=== PATIENT | female | born 2000 | race Caucasian/White ===

== ENCOUNTER 2021-09-22 08:43 | Outpatient (RCR) | payer MEDICAID, SELFPAY ==
--- NOTE | 2021-09-22 10:07 | HP.PTEVAL_ITS ---
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 Date of Evaluation: 09/22/21 Physical Therapist: Jill Quick DPT - Visit Plan Frequency: 1x/Week Plan: Wheelchair evaluation - Subjective She has been in a wheelchair her whole she got her first one when she was 4-5 years old and its time for a new one. Lives with her family- she is fully i ndependent in her home in her chair. When she transfers independently from different surfaces. Does not work- does not drive. She is mostly at her home at this point due to the weather, but when its nice outside she can get outside. She is in her chair most of the day. She has sensation throughout both of her lower extremities- she has really bad circulation in her legs. She has not had pressure sores and can do her own weight shifts. She does not wear AFO's and shoes. She is not walking at all at this time. The most her feet touch the ground is to transfer. Goals: to get a new chair. She does sports- sled hockey and track with [employer]. - Objective Posture: FH, RS- can correct with verbal cues but does not maintain. Gait: patient does not ambulate. Transfers: stand/pivot with full use of UE for pulling to plinth. Palpation: not tender to touch. ROM: PROM: Ankle: DF: 10 degrees, PF: 20 degrees, Knee: Left: 0-120 degrees with patella subluxation, Right: 0-100 degrees. Hip: flexion: 90 degrees, Abd: 40 degrees- all motions have tight end feels due to increased tone. Strength: Core: fair plus, Hip: trace in hip flexion and abduction, Knee and Ankle: unable to perform without max A from PT. Flex: Hamsting: severe, Gastroc: severe, Soleus: severe, Quad: severe - Rehabilitation Potential Physical Therapy Diagnosis: Patient present with hypomobility- she has decreased LE and core strength/stabilization, flex and muscular endurance leading to inability to ambulate and perform ADL's. Rehabilitation Potential: Good - Anticipated Interventions Thank you for the opportunity to evaluate your patient. For Medicare and Medicare HMO plans, please review the plan of care and approve it. It will need to be FAXED BACK to us at [phone] for Medicare purposes. For Medicare only, by signing this I certify the plan of care. Please let me know if there are questions or concerns regarding this plan of care. Physician Signature: Date:
--- NOTE | 2021-12-28 14:05 | HP.PT.NRP ---
SHASTA HILL was seen in my office for initial evaluation on 09/22/21. The following Plan of Care was established for this patient: Initial Frequency: 1x/Week This patient was last seen in our office . Pertinent comments regarding their Physical therapy will appear below: Wheelchair evaluation only-d/c chart At this point I will be discontinuing this patient from physical therapy. I would be happy to see this patient again in the future if found appropriate by the physician. Thank you! BRAYDEN PakT
== END 2021-09-22 19:00 | disposition home or self-care (01) ==
LOC: PT 08:43
PROVIDERS: PCP Internal Medicine; Referring Provider Nurse Practitioner; Visit Provider Nurse Practitioner
DX: G80.1 Spastic diplegic cerebral palsy (principal); Q03.9 Congenital hydrocephalus, unspecified
CPT/HCPCS: 97162

== ENCOUNTER 2023-03-01 14:45 | Outpatient (RCR) | payer MEDICAID, SELFPAY ==
--- NOTE | 2023-03-01 15:54 | HP.PTEVAL_ITS ---
Patient's Visit Information Visit Information Visit Information: SHASTA HILL is a 22 year old F referred to Physical Therapy by Dr. Jonathan Briceno MD with a diagnosis of SPASTIC DIPLEGIC CEREBRAL PALSEY, CONGENTIAL HYDOCEPHALUS. Date of Evaluation: 03/01/23 Physical Therapist: Jorge Frederick PT, Cert MDT, OCS Visit Plan Frequency: 1 visit Plan: This patient will benefit from manual w/c power assist to maintain functional independence. Patient has good strength of BUE to propel W/C ,patient is mod I with transfers all surfaces. Patient is non-ambulatory and spastic diplegia with no strength in legs unable to use walker. Patient will use manual w/c power assist to perform all MRADL'S in home and community for shopping and DR appointments . Patient manual W/C power assist feature to optimal maintain patient level of functional [place]. Subjective Subjective: This 22 y/o female presents to physical therapy with W/C evaluation. Patient has cerebral palsy since . Patient needing new w/c. Patient is non ambulatory . Patient is I with transfers pivot all level commode ,car and chair/bed. Patient lives in 1 story home level. Patient transfers to tube shower with seat. I with bathing /dressing . Mom does most of cooking. Patient sleep in regular bed . Patient c/o back pain affects back pain. Patient denies paresthesia/tingling. Patient uses manual w/c . Patient has no pressure sores. Patient is incontinence. Patient has had multiple shut surgery and hip surgery and Achilles lengthening. Patient is involve adaptive sports. such as ice hockey and track. Patient raises 5k with w/c . Patient goal to have new w/c power assist feature SOCIAL: lives with mother Pain Bilateral Back: Pain Intensity (Out of 10): 3 Pain Intensity Range: 10 Objective Objective: POSTURE: posterior pelvic tilt NEURO: denies paresthesia/tinging ,reflexes Achilles and patella tendon 1/3 ,bilateral spasticity inlegs SKIN: intact no skin break down BUE:AROM WNL PROM BLE: hip flexion 95 degrees ,hip abduction 20 degrees ,knee flexion 0-105 degrees IR/ER tight TRANSFERS PIVOT: mod I BED MOBILITY : supine-sit mod I MOBILITY: w/c manual Independant SITTING: Balance good- Goals Goal 1:: Patient will benefit from manual w/c power assist feature Goal Time Frame: 1 visist Rehabilitation Potential Physical Therapy Diagnosis: This patient will benefit from manual w/c power assist to maintain functional independence. Patient has good strength of BUE to propel W/C ,patient is mod I with transfers all surfaces. Patient is non- ambulatory and spastic diplegia with no strength in legs unable to use walker. Patient will use manual w/c power assist to perform all MRADL'S in home and community for shopping and DR appointments . Patient manual W/C power assist feature to optimal maintain patient level of functional [place]. Rehabilitation Potential: Good Anticipated Interventions Patient/Client Instruction: Educate patient on: Condition For the Purpose of:: Other Other: w/c Text: Thank you for the opportunity to evaluate your patient. For Medicare and Medicare HMO plans, please review the plan of care and approve it. It will need to be FAXED BACK to us at [phone] for Medicare purposes. For Medicare only, by signing this I certify the plan of care. Please let me know if there are questions or concerns regarding this plan of care. Physician Signature: Date:
== END 2023-03-01 19:00 | disposition home or self-care (01) ==
LOC: PT 14:45
PROVIDERS: PCP Internal Medicine; Referring Provider Internal Medicine; Visit Provider Internal Medicine
DX: G80.1 Spastic diplegic cerebral palsy (principal); Q03.9 Congenital hydrocephalus, unspecified
CPT/HCPCS: 97162